=== PATIENT | male | born 1940 | race Caucasian/White ===

== ENCOUNTER 2018-04-03 10:10 | Outpatient (CLI) | payer MEDICARE, BC, SELFPAY ==
[2018-04-03 12:01] LABS: Abs Immature Grans 0.01 k/cumm (0.0-0.09); Absolute Basophil Count 0.05 k/cumm (0.0-0.2); Absolute Eosinophil Count 0.19 k/cumm (0.0-0.7); Absolute Lymphocyte Count 1.69 k/cumm (1.2-3.4); Absolute Monocyte Count 0.65 k/cumm (0.11-0.7); Absolute Neutrophil Count 2.54 k/cumm (1.2-6.7); Eosinophils % 3.7; HCT 40.6 % (40.0-50.0); HGB 13.3 g/dL (13.5-17.5); Immature Grans % 0.2; Lymphocytes % 32.9; Mean Corp. HGB Concentration 32.8 g/dL (32.0-36.0); Mean Corpuscular Hemoglobin 32.6 pg (27.0-33.0); Mean Corpuscular Volume 99.5 fL (80-95); Mean Platelet Volume 10.9 fL (8.0-11.0); Monocytes % 12.7; Neutrophils % 49.5; Platelet Count 258 x1000/uL (130-400); RBC 4.08 m/cumm (4.50-6.00); RBC Distribution Width 13.3 % (11.8-14.1); Reticulocyte 0.7 % (0.5-2.4); White Blood Cell Count 5.13 k/cumm (4.4-10.8)
== END 2018-04-03 10:30 ==
PROVIDERS: PCP Emergency Medicine; Visit Provider Emergency Medicine
DX: D64.9 Anemia, unspecified (principal)
CPT/HCPCS: 36415; 85025; 85045

== ENCOUNTER 2019-04-02 15:19 | Outpatient (CLI) | payer MEDICARE, BC, SELFPAY ==
[2019-04-02 17:08] LABS: Anion Gap 8.5 mmol/L (3-11); BUN 18 mg/dL (7-18); CO2 26.5 mmol/L (21.0-32.0); CREATININE 1.15 mg/dL (0.70-1.30); Calcium 8.8 mg/dL (8.5-10.1); Chloride 103 mmol/L (98-107); Glucose 85 mg/dL (70-100); Potassium 4.7 mmol/L (3.5-5.1); Sodium 138 mmol/L (136-145); Uric Acid 3.9 mg/dL (3.5-7.2)
[2019-04-05 10:31] LABS: PSA, Screening 0.3 ng/ml (0-6.5)
== END 2019-04-02 15:39 ==
PROVIDERS: PCP Emergency Medicine; Visit Provider Emergency Medicine
DX: R89.9 Unspecified abnormal finding in specimens from other organs, systems and tissues (principal); Z12.5 Encounter for screening for malignant neoplasm of prostate; M10.9 Gout, unspecified
CPT/HCPCS: 36415; 80048; 84153; 84550

== ENCOUNTER 2019-11-29 01:29 | Outpatient (CLI) | payer MEDICARE, BC, SELFPAY ==
[2019-11-29 14:48] LABS: Absolute Basophil Count 0.02 k/cumm (0.0-0.2); Absolute Eosinophil Count 0.07 k/cumm (0.0-0.7); Absolute Lymphocyte Count 2.16 k/cumm (1.2-3.4); Absolute Neutrophil Count 2.42 k/cumm (1.2-6.7); Basophils % 0.4; Eosinophils % 1.3; HCT 35.6 % (40.0-50.0); HGB 11.7 g/dL (13.5-17.5); Mean Corp. HGB Concentration 32.9 g/dL (32.0-36.0); Mean Corpuscular Hemoglobin 33.4 pg (27.0-33.0); Mean Corpuscular Volume 101.7 fL (80-95); Mean Platelet Volume 11.2 fL (8.0-11.0); Monocytes % 11.4; Neutrophils % 45.9; Platelet Count 230 x1000/uL (130-400); RBC Distribution Width 13.6 % (11.8-14.1); White Blood Cell Count 5.27 k/cumm (4.4-10.8)
[2019-11-29 15:13] LABS: Anion Gap 8.7 mmol/L (3-11); BUN 26 mg/dL (7-18); CO2 25.3 mmol/L (21.0-32.0); CREATININE 1.21 mg/dL (0.70-1.30); Calcium 8.5 mg/dL (8.5-10.1); Chloride 105 mmol/L (98-107); Glucose 87 mg/dL (74-106); Potassium 4.7 mmol/L (3.5-5.1); Sodium 139 mmol/L (136-145); Uric Acid 3.7 mg/dL (3.5-7.2)
== END 2019-11-29 01:49 ==
PROVIDERS: PCP Emergency Medicine; Visit Provider Emergency Medicine
DX: I10 Essential (primary) hypertension (principal); M10.9 Gout, unspecified
CPT/HCPCS: 36415; 80048; 84550; 85025

== ENCOUNTER 2020-08-24 02:57 | Outpatient (CLI) | payer MEDICARE, BC, SELFPAY ==
[2020-08-24 10:05] LABS: Abs Immature Grans 0.02 10^3/uL (0.0-0.06); Absolute Basophil Count 0.03 10^3/uL (0.0-0.2); Absolute Eosinophil Count 0.09 10^3/uL (0.0-0.7); Absolute Monocyte Count 0.44 10^3/uL (0.1-0.8); Absolute Neutrophil Count 2.46 10^3/uL (1.2-6.7); Basophils % 0.6; Eosinophils % 1.8; HCT 35.6 % (40.0-50.0); HGB 11.9 g/dL (13.5-17.5); Immature Grans % 0.4; Lymphocytes % 40.9; MCH 33.1 pg (27.0-33.0); MCHC 33.4 % (32.0-36.0); MCV 98.9 fL (80-95); MPV 11.3 fL (8.0-11.0); Monocytes % 8.6; Neutrophils % 47.7; Nucleated RBC 0 %; RDW 13.5 % (11.8-14.1); RDW-SD 49.4 fL; WBC 5.14 10^3/uL (4.4-10.8)
[2020-08-24 10:45] LABS: Diff Comment Diff Reviewed
[2020-08-24 10:46] LABS: Macrocytosis 1+; Poikilocytes 1+
[2020-08-24 10:47] LABS: Anion Gap 5.9 mmol/L (3-11); BUN 21 mg/dL (7-18); CO2 27.1 mmol/L (21.0-32.0); CREATININE 1.3 mg/dL (0.70-1.30); Calcium 8.8 mg/dL (8.5-10.1); Calculated LDL 151 mg/dL (<100); Chloride 105 mmol/L (98-107); Cholesterol 232 mg/dL (<200); Estimated GFR 52.98 (mL/min/1.73m2); Glucose 97 mg/dL (74-106); HDL Cholesterol 70 mg/dL (40-60); Potassium 4.8 mmol/L (3.5-5.1); Sodium 138 mmol/L (136-145); Triglyceride 55 mg/dL (<150)
== END 2020-08-24 02:58 | disposition home or self-care (01) ==
LOC: LBO 02:57
PROVIDERS: PCP Emergency Medicine; Visit Provider Emergency Medicine
DX: I10 Essential (primary) hypertension (principal); D64.9 Anemia, unspecified; E78.5 Hyperlipidemia, unspecified
CPT/HCPCS: 36415; 80048; 80061; 85025

== ENCOUNTER 2020-10-31 13:56 | Outpatient (CLI) | payer MEDICARE, BC, SELFPAY ==
--- NOTE | 2020-10-31 10:10 | DI.RAD_ITS ---
Exam(s) XR PELVIS W OBLIQUES 3V EXAM: XR PELVIS W OBLIQUES 3V CLINICAL HISTORY: fall onto left butt W19.XXXA. TECHNIQUE: 2D digital imaging was performed. COMPARISON: No exams were available for comparison FINDINGS: BONES: No acute fracture is present. No bony destructive lesion is seen. Degenerative disc changes in the lower lumbar spine. JOINTS: No dislocation present. No joint space narrowing is present. Mild bilateral acetabular spurr ing. SI joints and pubic symphysis unremarkable. SOFT TISSUE: Rounded soft tissue calcifications beneath the left ischium. Calcification of the dista l abdominal aorta and proximal iliac arteries. IMPRESSION: Unremarkable radiographs of the pelvis. DATA REPOSITORY: RADIATION DOSE DELIVERED:
== END 2020-10-31 14:16 ==
PROVIDERS: PCP Emergency Medicine; Visit Provider Emergency Medicine
DX: M51.36 Other intervertebral disc degeneration, lumbar region (principal); M53.3 Sacrococcygeal disorders, not elsewhere classified; W19.XXXA Unspecified fall, initial encounter
CPT/HCPCS: 72190

== ENCOUNTER 2020-11-22 21:21 | Outpatient (REF) | payer MEDICARE, BC, SELFPAY ==
[2020-11-22 16:09] LABS: Abs Immature Grans 0.01 10^3/uL (0.0-0.06); Absolute Basophil Count 0.03 10^3/uL (0.0-0.2); Absolute Eosinophil Count 0.04 10^3/uL (0.0-0.7); Absolute Lymphocyte Count 1.54 10^3/uL (1.2-3.4); Absolute Monocyte Count 0.47 10^3/uL (0.1-0.8); Absolute Neutrophil Count 2.59 10^3/uL (1.2-6.7); Basophils % 0.6; Eosinophils % 0.9; HCT 34.5 % (40.0-50.0); HGB 11.2 g/dL (13.5-17.5); Immature Grans % 0.2; Lymphocytes % 32.9; MCH 32.9 pg (27.0-33.0); MCHC 32.5 % (32.0-36.0); MCV 101.5 fL (80-95); MPV 11.8 fL (8.0-11.0); Neutrophils % 55.4; Nucleated RBC 0 %; Platelet Count 262 10^3/uL (130-400); RDW 13.5 % (11.8-14.1); RDW-SD 50.7 fL; WBC 4.68 10^3/uL (4.4-10.8)
[2020-11-22 16:24] LABS: Calculated LDL 82 mg/dL (<100); Cholesterol 176 mg/dL (<200); HDL Cholesterol 86 mg/dL (40-60); Triglyceride 43 mg/dL (<150)
== END 2020-11-22 21:22 | disposition home or self-care (01) ==
LOC: LBN 21:21
PROVIDERS: PCP Emergency Medicine; Visit Provider Emergency Medicine
DX: D64.9 Anemia, unspecified (principal); E78.5 Hyperlipidemia, unspecified
CPT/HCPCS: 80061; 85025

== ENCOUNTER 2021-12-18 02:46 | Outpatient (CLI) | payer MEDICARE, BC, SELFPAY ==
[2021-12-18 10:22] LABS: HCT 33.4 % (40.0-50.0); HGB 11.2 g/dL (13.5-17.5); MCH 33.7 pg (27.0-33.0); MCHC 33.5 % (32.0-36.0); MCV 101 fL (80-95); MPV 10.7 fL (8.0-11.0); Platelet Count 201 10^3/uL (130-400); RBC 3.32 10^6/uL (4.36-5.78); RDW 14.1 % (11.8-14.1); RDW-SD 52.3 fL; WBC 5.54 10^3/uL (4.4-10.8)
[2021-12-18 11:00] LABS: Iron 95 ug/dL (65-175); Total Iron Binding Capacity 247 ug/dL (250-450); Transferrin Sat 38 % (20-55)
[2021-12-18 11:40] LABS: ALT 29 U/L (16-63); AST 26 U/L (15-37); Albumin 3.2 g/dL (3.4-5.0); Alkaline Phosphatase 78 U/L (46-116); Anion Gap 7.6 mmol/L (3-11); BUN 26 mg/dL (7-18); Bilirubin, Total 0.7 mg/dL (0.2-1.0); CO2 28.4 mmol/L (21.0-32.0); CREATININE 1.2 mg/dL (0.70-1.30); Calcium 8.4 mg/dL (8.5-10.1); Calculated LDL 75 mg/dL (<100); Chloride 107 mmol/L (98-107); Cholesterol 161 mg/dL (<200); Estimated GFR 57.96 (mL/min/1.73m2); Ferritin 75 ng/mL (26-388); Glucose 91 mg/dL (74-106); HDL Cholesterol 75 mg/dL (40-60); Potassium 4.4 mmol/L (3.5-5.1); Sodium 143 mmol/L (136-145); TSH (W/Ref FT4) 3.06 uIU/mL (0.36-3.74); Triglyceride 55 mg/dL (<150); Vitamin B12 1406 pg/mL (193-986)
[2021-12-18 11:49] LABS: Uric Acid 4.2 mg/dL (3.5-7.2)
[2021-12-18 19:00] LABS: PSA, Diagnostic 0.3 ng/mL (<=6.5)
== END 2021-12-18 02:47 | disposition home or self-care (01) ==
LOC: LBO 02:46
PROVIDERS: PCP Family Medicine; Visit Provider Family Medicine
DX: D64.9 Anemia, unspecified (principal); I10 Essential (primary) hypertension; R53.83 Other fatigue; E78.5 Hyperlipidemia, unspecified; M10.9 Gout, unspecified; E53.8 Deficiency of other specified B group vitamins; N40.0 Benign prostatic hyperplasia without lower urinary tract symptoms
CPT/HCPCS: 36415; 80053; 80061; 85027; 82607; 82728; 82746; 83540; 83550; 84153; 84443; 84550

== ENCOUNTER 2022-08-15 01:43 | Outpatient (CLI) | payer MEDICARE, BC, SELFPAY ==
--- NOTE | 2022-08-15 08:00 | DI.DEXA_ITS ---
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 COMPARISON: No exams were available for comparison FINDINGS: Lateral view of the thoracic and lumbar spine shows no evidence of compression fractures. Bone mineral density measurements of the lumbar spine correspond to a total T-score of -3.5, in the osteoporotic range. Bone mineral density measurements of the left hip correspond to a total T-score of negative 3.2. Th e femoral neck T-score is -2.9, in the osteoporotic range.. The left forearm bone mineral density measurements correspond to a T-score of the distal 3rd of -4.2 , in the osteoporotic range.. IMPRESSION: Osteoporosis of the lumbar spine, left hip and forearm.
== END 2022-08-15 02:03 ==
LOC: DI 01:43
PROVIDERS: PCP Family Medicine; Visit Provider Family Medicine
DX: M81.0 Age-related osteoporosis without current pathological fracture (principal)
CPT/HCPCS: 77080

== ENCOUNTER 2022-11-12 10:40 | Outpatient (CLI) | payer MEDICARE, BC, SELFPAY ==
[2022-11-12 12:24] LABS: HCT 36.6 % (40.0-50.0); MCH 33.2 pg (27.0-33.0); MCHC 32.8 % (32.0-36.0); MCV 101 fL (80-95); MPV 11.4 fL (8.0-11.0); Platelet Count 221 10^3/uL (130-400); RBC 3.61 10^6/uL (4.36-5.78); RDW-SD 51.9 fL; WBC 5.24 10^3/uL (4.4-10.8)
[2022-11-12 12:33] LABS: ESR 21 mm/hr (0-20)
[2022-11-12 13:16] LABS: ALT 24 U/L (16-63); AST 29 U/L (15-37); Albumin 3.4 g/dL (3.4-5.0); Alkaline Phosphatase 81 U/L (46-116); Anion Gap 9.4 mmol/L (3-11); BUN 27 mg/dL (7-18); Bilirubin, Total 0.7 mg/dL (0.2-1.0); CO2 25.6 mmol/L (21.0-32.0); CREATININE 1.3 mg/dL (0.70-1.30); Calcium 8.9 mg/dL (8.5-10.1); Calculated LDL 73 mg/dL (<100); Chloride 107 mmol/L (98-107); Cholesterol 167 mg/dL (<200); Estimated GFR 54.51 (mL/min/1.73m2); Glucose 94 mg/dL (74-106); HDL Cholesterol 89 mg/dL (40-60); Potassium 4.6 mmol/L (3.5-5.1); Sodium 142 mmol/L (136-145); TSH (W/Ref FT4) 3.04 uIU/mL (0.36-3.74); Total Protein 7.5 g/dL (6.4-8.2); Triglyceride 27 mg/dL (<150)
[2022-11-12 13:25] LABS: C-Reactive Protein 0.07 mg/dL (0.0-0.3)
[2022-11-18 10:54] LABS: Testosterone, Free 3.08 ng/dL (2.88-10.5); Testosterone, Total 305 ng/dL (240-950)
== END 2022-11-12 10:41 | disposition home or self-care (01) ==
LOC: LOS 10:41
PROVIDERS: PCP Family Medicine; Referring Provider Family Medicine; Visit Provider Family Medicine
DX: R70.0 Elevated erythrocyte sedimentation rate (principal); D64.9 Anemia, unspecified; R53.83 Other fatigue; E29.1 Testicular hypofunction; E78.5 Hyperlipidemia, unspecified; R03.0 Elevated blood-pressure reading, without diagnosis of hypertension; R35.1 Nocturia; Z79.899 Other long term (current) drug therapy; M10.9 Gout, unspecified
CPT/HCPCS: 36415; 80053; 80061; 84402; 84403; 85027; 85652; 84443; 86140

== ENCOUNTER → 2022-11-18 13:51 | Outpatient (BNVA) | payer MEDICARE, BC, SELFPAY | PROVIDERS: PCP Family Medicine; Referring Provider Family Medicine; Visit Provider Urology | DX: R35.1 Nocturia (principal) | CPT/HCPCS: 51798; 81003; 99205 ==

== ENCOUNTER 2022-11-28 02:23 | Outpatient (CLI) | payer MEDICARE, BC, SELFPAY ==
[2022-11-28 15:05] LABS: Anion Gap 6.2 mmol/L (3-11); BUN 18 mg/dL (7-18); CO2 25.8 mmol/L (21.0-32.0); CREATININE 1.2 mg/dL (0.70-1.30); Calcium 8.1 mg/dL (8.5-10.1); Chloride 99 mmol/L (98-107); Glucose 97 mg/dL (74-106); Potassium 4.5 mmol/L (3.5-5.1); Sodium 131 mmol/L (136-145)
[2022-11-28 22:27] LABS: PSA, Screening 0.2 ng/mL (<=6.5)
== END 2022-11-28 02:24 | disposition home or self-care (01) ==
LOC: LBO 02:24
PROVIDERS: PCP Family Medicine; Visit Provider Urology
DX: R35.1 Nocturia (principal); N40.0 Benign prostatic hyperplasia without lower urinary tract symptoms; E78.5 Hyperlipidemia, unspecified; R03.0 Elevated blood-pressure reading, without diagnosis of hypertension
CPT/HCPCS: 36415; 80048; 84153

== ENCOUNTER 2023-01-17 11:41 | Outpatient (CLI) | payer MEDICARE, BC, SELFPAY ==
--- NOTE | 2023-01-17 11:30 | RT.EKG_ITS ---
APPROVED REPORT Exam: Resting ECG Reason for Exam: fatigue Patient Location: O HR:61 bpm ECG Measurements Heart Rate 61 AXIS VA 208 P 62 QRSd 112 QRS -34 QT 423 T 49 QTc 426 Conclusion Sinus rhythm...normal P axis, V-rate 50- 99 Borderline IVCD with LAD...QRSd >112mS, axis(-90,-30)
== END 2023-01-17 11:42 | disposition home or self-care (01) ==
LOC: DI.CM 11:42
PROVIDERS: PCP Family Medicine; Visit Provider Family Medicine
DX: R53.83 Other fatigue (principal)
CPT/HCPCS: 93010

== ENCOUNTER → 2023-04-22 15:17 | Outpatient (BNVA) | payer MEDICARE, BC, SELFPAY | PROVIDERS: PCP Family Medicine; Referring Provider Family Medicine; Visit Provider Nurse Practitioner Gerontology | DX: R35.1 Nocturia (principal); R39.89 Other symptoms and signs involving the genitourinary system | CPT/HCPCS: 51798; 99213 ==

== ENCOUNTER 2024-01-21 03:10 | Outpatient (CLI) | payer MEDICARE, BC, SELFPAY ==
[2024-01-21 12:13] LABS: Abs Immature Grans 0.02 10^3/uL (0.0-0.06); Absolute Basophil Count 0.04 10^3/uL (0.0-0.2); Absolute Eosinophil Count 0.19 10^3/uL (0.0-0.7); Absolute Lymphocyte Count 2.19 10^3/uL (1.2-3.4); Absolute Monocyte Count 0.54 10^3/uL (0.1-0.8); Basophils % 0.6 %; HCT 36.9 % (40.0-50.0); HGB 12.3 g/dL (13.5-17.5); Immature Grans % 0.3 %; Lymphocytes % 34.9 %; MCH 33.7 pg (27.0-33.0); MCHC 33.3 % (32.0-36.0); MCV 101 fL (80-95); MPV 11.5 fL (8.0-11.0); Monocytes % 8.6 %; Neutrophils % 52.6 %; Platelet Count 208 10^3/uL (130-400); RBC 3.65 10^6/uL (4.36-5.78); RDW 14.1 % (11.8-14.1); RDW-SD 52.4 fL; WBC 6.28 10^3/uL (4.4-10.8)
[2024-01-21 12:44] LABS: ALT 28 U/L (16-63); AST 29 U/L (15-37); Albumin 3.5 g/dL (3.4-5.0); Alkaline Phosphatase 63 U/L (46-116); Anion Gap 8.1 mmol/L (3-11); BUN 28 mg/dL (7-18); Bilirubin, Total 0.92 mg/dL (0.2-1.0); CO2 25.9 mmol/L (21.0-32.0); CREATININE 1.4 mg/dL (0.70-1.30); Calcium 8.8 mg/dL (8.5-10.1); Calculated LDL 107 mg/dL (<100); Chloride 108 mmol/L (98-107); Cholesterol 216 mg/dL (<200); Estimated GFR 49.56 (mL/min/1.73m2); Glucose 97 mg/dL (74-106); HDL Cholesterol 101 mg/dL (40-60); Potassium 4.7 mmol/L (3.5-5.1); Sodium 142 mmol/L (136-145); Total Protein 7.3 g/dL (6.4-8.2); Triglyceride 43 mg/dL (<150)
== END 2024-01-21 03:11 | disposition home or self-care (01) ==
LOC: LOS 03:10
PROVIDERS: PCP Family Medicine; Visit Provider Family Medicine
DX: Z13.6 Encounter for screening for cardiovascular disorders (principal); E78.5 Hyperlipidemia, unspecified; Z00.00 Encounter for general adult medical examination without abnormal findings; R03.0 Elevated blood-pressure reading, without diagnosis of hypertension; M10.9 Gout, unspecified
CPT/HCPCS: 36415; 80053; 80061; 85025

== ENCOUNTER 2024-03-16 03:13 | Outpatient (CLI) | payer MEDICARE, BC, SELFPAY ==
[2024-03-16 11:43] LABS: Ferritin 74 ng/mL (26-388); TSH (W/Ref FT4) 2.77 uIU/mL (0.36-3.74); Vitamin B12 949 pg/mL (193-986)
== END 2024-03-16 03:14 | disposition home or self-care (01) ==
PROVIDERS: PCP Family Medicine; Visit Provider Family Medicine
DX: R53.82 Chronic fatigue, unspecified (principal); R53.81 Other malaise; E03.9 Hypothyroidism, unspecified
CPT/HCPCS: 36415; 82607; 82728; 84443

== ENCOUNTER 2024-12-29 13:42 | Outpatient (CLI) | payer MEDICARE, BC, SELFPAY ==
--- NOTE | 2024-12-29 13:30 | DI.RAD_ITS ---
Exam(s) XR LUMBAR SPINE COMPLETE EXAM: XR LUMBAR SPINE COMPLETE CLINICAL HISTORY: low back pain, right sided M54.50. TECHNIQUE: 2D digital imaging was performed of the lumbar spine. Five images were obtained. AP, lateral, right oblique, left oblique and L5-S1 spot views were obtained. COMPARISON: CR XR DEXA BONE DENSITY W/WO SOLEDAD from 08/15/2022 FINDINGS: BONES: There is a fracture of the L3 vertebral body with loss of 50 percent of the height of the vertebral body anteriorly. There does appear to be retropulsion into this central spinal canal. The acuity is indeterminate. The bones are osteopenic. There are endplate osteophytes throughout the lumbar spine. Degenerative changes of the facets are seen at L4-5 and L5-S1. DISKS: There is disc space narrowing at L5-S1. ALIGNMENT: Lumbar spinal alignment is within normal limits. No spondylolysis or spondylolisthesis. SOFT TISSUE: Atherosclerotic calcification is present. IMPRESSION: 1. Compression fracture of the L3 vertebral body with loss of 50 percent of the height of the vertebra. There does appear to be some retropulsion into the spinal canal. CT scan of the lumbar spine is recommended for further evaluation. 2. Osteopenia. 3. Degenerative changes in the lumbar spine. DATA REPOSITORY: RADIATION DOSE DELIVERED:
== END 2024-12-29 14:02 ==
LOC: DI 13:48
PROVIDERS: PCP Family Medicine; Visit Provider Family Medicine
DX: M54.50 Low back pain, unspecified (principal); S32.030A Wedge compression fracture of third lumbar vertebra, initial encounter for closed fracture; X58.XXXA Exposure to other specified factors, initial encounter
CPT/HCPCS: 72110

== ENCOUNTER 2025-01-19 12:53 | Outpatient (CLI) | payer MEDICARE, BC, SELFPAY ==
--- NOTE | 2025-01-19 08:00 | DI.CT_ITS ---
Exam(s) CT LUMBAR SPINE WO EXAM: CT LUMBAR SPINE WO CLINICAL HISTORY: per rad report, COMPRESSION FX OF L3 VERTEBRA ,S32.030A. TECHNIQUE: Imaging Protocol: Axial computed tomography images with coronal and sagittal reformatted images were created and reviewed COMPARISON: CR XR LUMBAR SPINE COMPLETE from 12/29/2024 FINDINGS: Bones: The last intervertebral disc space is designated the L5/S1 level for the numbering purpose of this examination. There is a compression fracture of L3 which appears subacute. Some fracture lines are remain visible. There is compression of the central portion of the vertebral body by 2/3. There is mild compression of the posterior endplate and approximately 50 percent compression of the anterior portion of the vertebral body. There is slight retropulsion into the central canal of approximately 3 millimeters. There are nondisplaced fractures extending vertically through the anterior portions of the bilateral pedicles, at the junction with the vertebral body. No additional fractures are identified. The alignment is satisfactory. T12-L1: No disc herniations or bulges are present. L1-2: No disc herniations or bulges are present. L2-3: Mild disc bulging. Mild central canal stenosis. L3-4: Mild disc bulging. There are facet degenerative changes and ligamentous hypertrophy is combine with the disc bulging to produce moderate central canal stenosis, of the AP dimension of the canal. L4-5: There is moderate loss of disc height and, small endplate osteophytes and mild disc bulging. L5-S1: There is severe loss of disc height. No disc herniations or bulges are present. No central canal stenosis The visualized SI joints and sacrum are well maintained. Soft Tissues: The paraspinal soft tissues are unremarkable. IMPRESSION: Moderate to severe compression fracture of L3 with mild retropulsion of 3 millimeters. There is mild central canal stenosis at L2-3 and moderate central canal stenosis at L3-4, secondary to a combination of degenerative changes. RADIATION DOSE DELIVERED: Total DLP DATA REPOSITORY: All CT scans at this facility are submitted to the National Radiology Data Registry (NRDR) Dose Index Registry (DIR) with the [employer] ([employer]). RADIATION OPTIMIZATION: All CT scans at this facility use at least one of these dose optimization techniques: automated exposure control; mA and/or kV adjustment per patient size (includes targeted exams where dose is matched to clinical indication); or iterative reconstruction.
== END 2025-01-19 13:13 ==
LOC: DI 02-03 12:54
PROVIDERS: PCP Family Medicine; Visit Provider Family Medicine
DX: S32.030A Wedge compression fracture of third lumbar vertebra, initial encounter for closed fracture (principal); X58.XXXA Exposure to other specified factors, initial encounter
CPT/HCPCS: 72131

== ENCOUNTER 2025-03-23 10:48 | Outpatient (CLI) | payer MEDICARE, BC, SELFPAY ==
[2025-03-23 16:17] LABS: Abs Immature Grans 0.01 10^3/uL (0.0-0.06); HCT 35.4 % (40.0-50.0); HGB 11.0 g/dL (13.5-17.5); Immature Grans % 0.1 %; MCH 29.5 pg (27.0-33.0); MCHC 31.1 % (32.0-36.0); MCV 95 fL (80-95); MPV 10.1 fL (8.0-11.0); Platelet Count 306 10^3/uL (130-400); RBC 3.73 10^6/uL (4.36-5.78); RDW 14.4 % (11.8-14.1); RDW-SD 49.9 fL; WBC 7.42 10^3/uL (4.4-10.8)
[2025-03-23 16:43] LABS: ALT 25 U/L (16-63); AST 29 U/L (15-37); Albumin 3.3 g/dL (3.4-5.0); Alkaline Phosphatase 109 U/L (46-116); Anion Gap 12.2 mmol/L (3-11); BUN 24 mg/dL (7-18); Bilirubin, Total 0.5 mg/dL (0.2-1.0); CO2 21.8 mmol/L (21.0-32.0); Calcium 8.9 mg/dL (8.5-10.1); Chloride 107 mmol/L (98-107); Glucose 85 mg/dL (74-106); Potassium 4.0 mmol/L (3.5-5.1); Sodium 141 mmol/L (136-145); TSH (W/Ref FT4) 3.35 uIU/mL (0.36-3.74); Total Protein 7.6 g/dL (6.4-8.2)
[2025-03-23 16:57] LABS: Uric Acid 4.8 mg/dL (3.5-7.2)
== END 2025-03-23 10:49 | disposition home or self-care (01) ==
LOC: LOS 04-19 10:48
PROVIDERS: PCP Family Medicine; Visit Provider Family Medicine
DX: M1A.9XX0 Chronic gout, unspecified, without tophus (tophi) (principal); Z00.00 Encounter for general adult medical examination without abnormal findings; D64.9 Anemia, unspecified; E03.9 Hypothyroidism, unspecified; R53.82 Chronic fatigue, unspecified; R53.81 Other malaise
CPT/HCPCS: 36415; 80053; 84443; 84550; 85025